=== PATIENT | female | born 1980 | race Two or more races ===

== ENCOUNTER → 2025-08-12 | Emergency (ER) | payer OTHER ==
[~2025-08-12] VITALS: Ht 170.2 cm; Wt 107.0 kg
[~2025-08-12] MED LIST: COZAAR100 MG PO; HYDROCHLOROTHIA50 MG PO; NORVASC5 MG PO; PROSCAR5 MG; VISTARIL50 MG/ML IM
== END | disposition left against medical advice (07) ==
LOC: ER 04:40
DX: Z53.21 Procedure and treatment not carried out due to patient leaving prior to being seen by health care provider (principal)